=== PATIENT | male | born 1950 | race Caucasian/White ===

== ENCOUNTER 2018-01-03 00:19 | Day surgery (SDC) | payer MEDICARE, OTHER ==
[~2018-01-03] VITALS: Ht 177.8 cm; Wt 81.6 kg
[~2018-01-03 00:19] MED LIST: ALBU8.5H IH; AZIT-17 PO; DUL100/5PT INH; FLUT16SP19 NS; IBUP-56 PO; MELO-207 PO; METH4TAB66 PO; MONT10TA PO; NAPR220C12 PO; NAPR220T86 PO; OXYC-865 PO
[2018-01-03] MEDS ORDERED: MIDAZOLAM 2 MG/2 ML VIAL IVP PRN (09:10)
[2018-01-03] MEDS ORDERED: FAMOTIDINE 20 MG TAB PO ONE (09:10)
[2018-01-03] MEDS ORDERED: LIDOCAINE/SOD BICARB 8.4% SYR ID ONE (09:10)
[2018-01-03] MEDS ORDERED: NORMOSOL R SOLN(*) 1000 ML BAG 1,000 ML IV PRN (09:10)
[2018-01-03] MEDS ORDERED: ceFAZolin(*) 1 GM VIAL 1 GM in NS(*) 0.9% 100 ML ADDVANT BAG 100 ML IVPB ONE (09:10)
[2018-01-03 09:55] VITALS: BP 137/87
[2018-01-03 10:01] LABS: PLATELET COUNT, AUTOMATED 266 K/uL (150-450)
[2018-01-03] MEDS ORDERED: FAMOTIDINE(*) 20MG/50ML PREMIX 50 ML IVPB ONE (10:13)
[2018-01-03] MEDS ORDERED: MINERAL OIL LIGHT 10 ML VIAL ONE (10:27)
[2018-01-03] MEDS ORDERED: ROPIVACAINE 0.5% 20 ML VIAL ONE ×2 (10:27→10:28)
[2018-01-03] MEDS ORDERED: NEOMYCIN/POLYMYX/BACITR 30 GM TP ONE (10:27)
[2018-01-03] MEDS ORDERED: LIDO/EPI 1% MDV 1:100,000 20ML INFIL ONE (10:27)
[2018-01-03] MEDS ORDERED: MIDAZOLAM 2 MG/2 ML VIAL ONE (10:30)
[2018-01-03] MEDS ORDERED: fentaNYL CITR 100 MCG/2 ML AMP ONE (10:31)
[2018-01-03] MEDS ORDERED: EPINEPHrine HCL 30 MG/30 ML ONE (11:03)
[2018-01-03] MEDS ORDERED: OXYC-854 PO (12:46)
[2018-01-03] MEDS ORDERED: DOCU-416 PO (12:46)
--- NOTE | 2018-01-03 12:52 | Short(Outpt) Discharge Summary ---
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 Departure Discharge to: Home, Self Care Discharge Instructions Home Meds Active Scripts Docusate Sodium (COLACE) 100 Mg Capsule, 1 CAP PO BID, #30 CAP 0 Refills TAKE WITH A FULL GLASS OF WATER Prov:JULIANA JARRETT MD 01/03/18 Oxycodone Hcl/Acet 5/325 Mg (ENDOCET 5-325 TABLET) 1 Each Tablet, 1-2 TAB PO Q4H Y for PAIN, #30 TAB 0 Refills Prov:JULIANA JARRETT MD 01/03/18 Reported Medications Albuterol Sulfate 90 Mcg/Act (PROAIR HFA 90 MCG/ACT) Unknown Strength Hfa.aer.ad , IH 3-4XD 08/19/15 Mometasone/Formoterol (DULERA 100 MCG/5 MCG INHALER) Unknown Strength Inh, INH, INH 08/19/15 Follow up Referrals: General Surgery - 01/11/18 @ Surgery, General with Juliana Jarrett Md You have a follow up appointment scheduled with Dr. Jarrett on 01/11/18, at 12:30pm. Diet: Regular Activity: As Tolerated Special Instructions: You may bath as desired but please do not get the dressing on your scalp wet, don't wash you hair until I see you back in my office. Leave the current stocking cap and dressings in place until I see you back in my office next week. If it comes off, CAREFULLY, put it (or another loose stocking cap of your choice) back on very carefully so as not to disrupt the bolster/dressing on the skin graft. Keep the wrapping on your left thigh until 01/05/18. After removing the wrap and white gauze from your thigh, you'll see a light yellow guaze stuck to your thigh; leave this in place and don't try to remove it. If it falls off on it's own, just leave the left thigh donor site open to air. JULIANA JARRETT MD Jan 03, 2018 12:52
--- NOTE | 2018-01-03 13:00 | Post Operative Progress Note ---
Post Operative Progress Note Date: Jan 03, 2018 Time: 12:52 Surgeon: Clemencia Dictation number: [id number] Anesthesia: LMA by Dr. Vidal Pre-Op Diagnosis: Squamous cell skin cancer, scalp Post-Op Diagnosis: MARIANA Findings: C/W dx Procedure(s): Wide excision of skin cancer from scalp STSG from left thigh to scalp Specimen Removed:(May be N/A): 1) Scalp skin cancer 2) right margin 3) anterior margin 4) left margin 5) posterior margin Complications: None Fluids: See anesthesia record Estimated Blood Loss: Minimal Date OP Note Dictated: Jan 03, 2018 Time OP Note Dictated: 12:53 JULIANA JARRETT MD Jan 03, 2018 13:00
[2018-01-03 13:27] VITALS: BP 122/73
[2018-01-03 13:37] VITALS: BP 126/80
[2018-01-03 13:39] VITALS: BP 127/87
--- NOTE | 2018-01-03 18:08 | OPERATIVE REPORT 1 ---
EVENT DATE: January 03, 2018 SURGEON: Arron Khanna MD ANESTHESIOLOGIST: Jason Vidal MD ANESTHESIA: LMA. PREOPERATIVE DIAGNOSIS Invasive squamous cell skin cancer on scalp. POSTOPERATIVE DIAGNOSIS Invasive squamous cell skin cancer on scalp. PROCEDURES PERFORMED 1. Wide excision of squamous cell skin cancer from scalp. 2. Split-thickness skin graft transferring from left thigh to scalp. COMPLICATIONS None. CONDITION Stable. BLOOD LOSS Minimal. SPECIMENS 1. Scalp skin cancer. 2. Right margin. 3. Anterior margin. 4. Left margin. 5. Posterior margin. INDICATIONS This is a 67-year-old gentleman who was referred to my office after a biopsy revealed a squamous cell skin cancer on his scalp. It was 1.5 cm in diameter and ulcerated. Because it is on the scalp, and there is no excess skin, I discussed with him wide excision in the operating room with a skin graft to cover the defect. He provided consent for these procedures. DESCRIPTION OF PROCEDURE The patient was brought to the operating room and placed supine on the operating table. LMA anesthesia was administered, and his scalp and left eye were prepped and draped in a sterile fashion. A timeout was completed. I anesthetized the skin with 0.5% ropivacaine plain around the skin cancer and then made a 2.5 cm diameter round incision all the way around the cancer with grossly negative margins on all sides. I dissected through the dermis and in the subcutaneous tissues. I then undermined the disk of tissue and passed it off the field. I then shaved off each of the anterior, posterior, left, and right margins and sent them in separate containers for frozen section to confirm negative involvement of these margins with cancer. I then made this wound hemostatic and packed it with a moist gauze. I then applied mineral oil to the patient's left thigh and used the dermatome and obtained a 2-inch wide piece of split-thickness skin graft, and then I applied an epinephrine-soaked gauze on the donor site. I meshed the graft with a 3-to-1 meshing plate and then placed it in saline. We waited for the frozen section results come back, and they did come back as all four were negative involving cancer. At this time , I applied the dermis side down of the skin graft to the defect in the scalp and stapled it all around, trimmed it to size, and then applied a bolster composed of a Xeroform with antibiotic-moistened cotton balls inside the Xeroform. Then, I sewed this using 0 silk suture going through the kelly to hold this in place. I then applied 4 x 4 gauze over this, and then a stocking was placed over his head. His left eye was dressed with a Xeroform applied to the exposed dermis and trimmed to fit, and then 4 x 4 gauze was applied over this. The thigh was wrapped in Coban. He was then awakened and LMA removed. He was transported to the recovery room in good condition having tolerated the procedure without any apparent problems. ROBBIE
== END 2018-01-03 13:25 | disposition home or self-care (01) ==
LOC: OR 00:19
PROVIDERS: ATTEND Surgery
DX: C44.42 Squamous cell carcinoma of skin of scalp and neck (principal)
CPT/HCPCS: 11623; 15120; 36415; 85025; 88305; 88331; 88332; A9270; J0171; J0690; J2250; J3010; J3490; J7050; J2795

== ENCOUNTER → 2018-05-31 | Outpatient (CLI) | payer MEDICARE, OTHER ==
[~2018-05-31] MED LIST changes: +BENZ200C15 PO; +DOCU-416 PO; +OXYC-854 PO
--- NOTE | 2018-05-31 10:40 | RADIOLOGY IMAGING REPORT ---
FACILITY: [facility] PATIENT NAME: Teddy Barney : 1950 MR: [id number] V: [id number] EXAM DATE: ORDERING PHYSICIAN: JAQUELIN BROWN [place]CHNOLOGIST: [place] [facility] [place] : 1950 Visit/Account:[id number] Date of Sevice: 05/31/2018 CHEST PA AND LAT INDICATION: Cough x3 weeks; shortness of breath COMPARISON: None available FINDINGS: Heart size within normal limits. There is no focal infiltrate or lobar consolidation. There is no pneumothorax or pleural effusion. IMPRESSION: 1. No acute cardiopulmonary process. Report Dictated By: Xander Cruz at 05/31/2018 10:37 AM Report E-Signed By: Xander Cruz at 05/31/2018 10:37 AM WSN:[id number]
== END ==
LOC: RAD 09:50
PROVIDERS: ATTEND Nurse Practitioner Primary Care
DX: R05 Cough (principal)
CPT/HCPCS: 71046